=== PATIENT | male | born 1975 | race Caucasian/White ===

== ENCOUNTER → 2020-08-19 06:56 | Outpatient (CLI) | payer OTHER, SELFPAY ==
--- NOTE | 2020-08-19 | DI.MRI.S_ITS ---
PROCEDURE: MR SHOULDER LT WO CON INDICATIONS: Strain of muscle, fascia and tendon of other parts TECHNIQUE: Noncontrast oblique coronal T2 fast spin echo with fat saturation, oblique sagittal T1 spin echo and T2 fast spin echo with fat saturation, axial T1 spin echo and T2 fast spin echo with fat saturation through the shoulder. COMPARISON: None. FINDINGS: Image quality: Excellent. Rotator cuff: There is low-grade bursal surface tearing of the posterior supraspinatus/anterior infraspinatus tendon junction at the humeral insertion site extending to the musculotendinous junction. There is low-grade partial-thickness bursal surface tearing of the anterior and mid supraspinatus tendon at the humeral insertion site. Mild T2 signal elevation within the infraspinatus tendon diffusely at the humeral insertion site is present, indicating tendinopathy. Low-grade partial-thickness intrasubstance tearing of the mid and superior subscapularis tendon at the humeral insertion site, demonstrating musculotendinous junction extension. Sagittal images demonstrate no muscle atrophy. Bones and bursae: No bone marrow contusions or fractures. Moderate acromioclavicular joint degeneration. The acromion demonstrates conventional anatomy, without an os acromiale. No pathologic subacromial-subdeltoid or subcoracoid bursal fluid is present. Capsule and soft tissues: In the absence of intra-articular contrast, the labrum and glenohumeral ligaments appear intact. The long head of the biceps tendon demonstrates normal location and morphology. The rotator interval appears normal, without fibrosis. The coracohumeral ligament is normal in thickness. IMPRESSION: 1. Infraspinatus tendinopathy. 2. Low-grade partial-thickness tears of the subscapularis, supraspinatus, and infraspinatus tendons. No full-thickness rotator cuff tear. 3. Acromioclavicular joint osteoarthritis. Dictated by: Elie San M.D. on 08/19/2020 at 8:29 Approved by: Elie San M.D. on 08/19/2020 at 8:31
== END ==
PROVIDERS: Referring Provider Orthopaedic Surgery Orthopaedic Surgery of the Spine; Visit Provider Orthopaedic Surgery Orthopaedic Surgery of the Spine
DX: S46.212A Strain of muscle, fascia and tendon of other parts of biceps, left arm, initial encounter (principal); S46.012A Strain of muscle(s) and tendon(s) of the rotator cuff of left shoulder, initial encounter; M19.012 Primary osteoarthritis, left shoulder; X58.XXXA Exposure to other specified factors, initial encounter
CPT/HCPCS: 73221

== ENCOUNTER → 2020-08-31 11:12 | Outpatient (CLI) | payer OTHER, SELFPAY ==
[2020-08-31 13:03] LABS: COVID19 -Nasal RAPID Negative (Negative)
== END ==
PROVIDERS: Visit Provider Physician Assistant
DX: Z11.59 Encounter for screening for other viral diseases (principal)
CPT/HCPCS: 87635

== ENCOUNTER 2020-09-02 06:12 | Day surgery (SDC) | payer OTHER, SELFPAY ==
[2020-08-30 10:49] VITALS: BMI 31.1
[2020-09-02] VITALS (13 sets, daily range): BP systolic 111–136; BP diastolic 63–84; PULSE 16–94; RESP 12–91; TEMP 36.7–36.9; O2SAT 91–98; BMI 31.1
[2020-09-02] MEDS: LACTATED RINGERS 1,000 ML 42 ML IV ×2 (07:15→08:45)
--- NOTE | 2020-09-02 07:22 | SUR.OPER ---
Supine on padded OR bed, head on pillow, right arm secured on padded arm boards at <90 degrees abduction, left arm prepped into field and supported on hand table, legs uncrossed, safety belt at thigh, tape over blanket over lower legs.
--- NOTE | 2020-09-02 07:38 | PM.PREOP ---
Pre-operative Note COVID-19 COVID-19 status: Negative Result date/Date tested (Pos, Neg/Pending): 08/31/20 Interval Note History & Physical reviewed/Exam performed by Physician: Yes Changes to H&P: No
[2020-09-02] MEDS: CEFAZOLIN 2 GM/100 ML FROZ.PIGGY IV (07:40)
[2020-09-02] MEDS: BUPIVACAINE 0.5% W/ EPI (PF) 30 ML VIAL INJ (09:20)
[2020-09-02] MEDS: fentaNYL 100 MCG/2 ML INJ IV ×6 (09:30→10:05)
[2020-09-02] MEDS: HYDROMORPHONE 2 MG INJ IV ×2 (09:35→09:40)
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
[2020-09-02] MEDS: OXYCODONE/ACETAMINOPHEN 5/325 TABLET 1 TAB PO ×2 (09:48→10:20)
[2020-09-02] MEDS: hydrOXYzine pamoate 25 MG CAPSULE PO (09:57)
--- NOTE | 2020-09-02 10:38 | SUR.PHASEII ---
hand off report to Jany Alejandra RN
[2020-09-02] MEDS: OXYCODONE IR 5 MG TABLET PO (11:00)
== END 2020-09-02 11:44 | disposition home or self-care (01) ==
PROVIDERS: Referring Provider Orthopaedic Surgery; Visit Provider Orthopaedic Surgery
PROC: (CPT 24341; principal; 2020-09-02 07:45)
DX: S46.212A Strain of muscle, fascia and tendon of other parts of biceps, left arm, initial encounter (principal); X50.0XXA Overexertion from strenuous movement or load, initial encounter
CPT/HCPCS: 24341; J0690; J1100; J1170; J2405; J2704; J2765; J3010

== ENCOUNTER → 2020-12-28 17:07 | Outpatient (CLI) | payer OTHER, SELFPAY ==
[2020-12-28 18:34] LABS: Alanine Aminotransferase 17 IU/L (<50); Albumin 4.7 g/dL (3.5-5.0); Alkaline Phosphatase 74 U/L (38-126); Aspartate Aminotransferase 23 IU/L (17-59); BUN Creatinine Ratio 24.7 (6-22); Bilirubin Total 1.1 mg/dL (0.2-1.3); Blood Urea Nitrogen 20 mg/dL (9-20); Calcium 9.7 mg/dL (8.4-10.2); Carbon Dioxide 26 mmol/L (22-32); Chloride 104 mmol/L (98-107); Cholesterol 192 mg/dL (140-199); Estimated Glomerular Filt Rate > 60.0 mL/min (>60); Globulin 2.4 g/dL (1.7-4.1); Glucose 116 mg/dL (70-100); HDL Cholesterol 38 mg/dL (40-60); HEMOLYSIS < 15 (0-50); LDL Cholesterol Calculated 108 mg/dL (<100); Lipase 75 U/L (23-300); Potassium 4.1 mmol/L (3.4-5.1); Sodium 140 mmol/L (137-145); Total Protein 7.1 g/dL (6.3-8.2); Triglycerides 228 mg/dL (35-150)
[2020-12-28 18:35] LABS: C-Reactive Protein Quant < 0.5 mg/dL (<1.0)
[2020-12-28 18:38] LABS: Hematocrit 36.6 % (41-53); Mean Corpuscular HGB Conc 32.8 % (30-36); Mean Corpuscular Hemoglobin 30.4 PG (26-34); Mean Corpuscular Volume 92.5 fL (80-100); Platelet Count 284 X10^3/uL (150-400); Red Blood Cell Count 3.95 X10^6/uL (4.5-5.9); Red Cell Distribution Width 18.7 % (11.6-14.8); White Blood Cell Count 8.3 X10^3/uL (4.5-11.0)
[2020-12-28 19:00] LABS: Add Manual Diff / Slide Review YES
[2020-12-28 19:02] LABS: TSH w/ Reflex to FT4 2.66 uIU/mL (0.47-4.68)
[2020-12-28 19:07] LABS: Erythrocyte Sedimentation Rate 13 MM/HR (0-15)
[2020-12-28 19:34] LABS: Neutrophils Absolute Manual 5312 /uL (3000-5900); Total Cells Counted 100
[2020-12-28 19:35] LABS: Ovalocytes 1+; Platelet Estimate Adequate on smear; Tear Drop Cells 1+
[2020-12-29 22:07] LABS: Deamidated Gliadin Ab IgA 5 units (0-19); Deamidated Gliadin Ab IgG 3 units (0-19); Immunoglobulin A,Qn 85 mg/dL (90-386); t-Transglutaminase IgA <2 U/mL (0-3)
[2021-01-06 14:27] LABS: Fecal Immunochemical Test Positive (Negative)
== END ==
PROVIDERS: PCP Family Medicine; Referring Provider Family Medicine; Visit Provider Family Medicine
DX: Z00.01 Encounter for general adult medical examination with abnormal findings (principal); K58.0 Irritable bowel syndrome with diarrhea; R39.15 Urgency of urination; Z80.0 Family history of malignant neoplasm of digestive organs
CPT/HCPCS: 80053; 80061; 82274; 82784; 83036; 83516; 83690; 84443; 85007; 85025; 85651; 86140

== ENCOUNTER → 2021-01-05 10:23 | Outpatient (CLI) | payer OTHER, SELFPAY ==
[2021-01-05 10:28] LABS: Bacteria Urine None Seen; RBC Urine None Seen (0-5/HPF); WBC Urine None Seen (0-5/HPF)
[2021-01-05 10:38] LABS: Appearance Urine UA SL CLOUDY; Bilirubin Urine UA NEGATIVE (NEGATIVE); Color Urine UA YELLOW; Glucose Urine UA NEGATIVE (Negative); Ketones Urine UA NEGATIVE (NEGATIVE); Leukocyte Esterase Urine UA NEGATIVE (NEGATIVE); Nitrite Urine UA NEGATIVE (Negative); Occult Blood Urine UA NEGATIVE (Negative); Protein Urine UA NEGATIVE (Negative); Urobilinogen Urine UA 0.2 E.U./dL (0.2); pH Urine UA 7.5 (4.5-8.0)
[2021-01-05 10:45] LABS: Amorphous Sediment Urine 3+; Culture Indicated Urine Cult Not Indicated
== END ==
PROVIDERS: PCP Family Medicine; Referring Provider Family Medicine; Visit Provider Family Medicine
DX: R39.15 Urgency of urination (principal)
CPT/HCPCS: 81001

== ENCOUNTER 2021-01-05 10:58 | Emergency (ER) | payer OTHER, SELFPAY ==
[2021-01-05] VITALS (9 sets, daily range): BP systolic 113–125; BP diastolic 58–65; PULSE 61–67; RESP 16; TEMP 36.7; O2SAT 97–100; BMI 27.1
[2021-01-05 11:29] LABS: Hematocrit 36.2 % (41-53); Hemoglobin 12.1 g/dL (13.5-17.5); Mean Corpuscular HGB Conc 33.6 % (30-36); Mean Corpuscular Hemoglobin 30.8 PG (26-34); Mean Corpuscular Volume 91.6 fL (80-100); Platelet Count 291 X10^3/uL (150-400); Red Blood Cell Count 3.95 X10^6/uL (4.5-5.9); Red Cell Distribution Width 19.1 % (11.6-14.8); White Blood Cell Count 9.9 X10^3/uL (4.5-11.0)
[2021-01-05 11:30] LABS: Add Manual Diff / Slide Review YES
[2021-01-05 11:33] LABS: INR 1.2 (0.9-1.3); Prothrombin Time 13.5 SECONDS (10.1-12.7)
[2021-01-05 11:36] LABS: PTT Partial Thromboplastin Tim 34 SECONDS (26.4-36.2)
[2021-01-05 11:37] LABS: Alanine Aminotransferase 21 IU/L (<50); Albumin 4.6 g/dL (3.5-5.0); Albumin Globulin Ratio 1.7 (1.0-2.8); Alkaline Phosphatase 85 U/L (38-126); Aspartate Aminotransferase 30 IU/L (17-59); BUN Creatinine Ratio 17.7 (6-22); Bilirubin Total 1.1 mg/dL (0.2-1.3); Blood Urea Nitrogen 14 mg/dL (9-20); Calcium 9.5 mg/dL (8.4-10.2); Carbon Dioxide 25 mmol/L (22-32); Chloride 104 mmol/L (98-107); Estimated Glomerular Filt Rate > 60.0 mL/min (>60); Globulin 2.7 g/dL (1.7-4.1); Glucose 108 mg/dL (70-100); HEMOLYSIS 17 (0-50); Lipase 52 U/L (23-300); Potassium 4.4 mmol/L (3.4-5.1); Sodium 139 mmol/L (137-145); Total Protein 7.3 g/dL (6.3-8.2)
[2021-01-05 11:47] LABS: Neutrophils Absolute Manual 7524 /uL (3000-5900); Polychromasia 1+; Tear Drop Cells 1+; Total Cells Counted 100
[2021-01-05 12:05] LABS: Creatine Kinase 41 U/L (55-170)
[2021-01-05 12:16] LABS: Troponin I < 0.012 ng/mL (0.01-0.034)
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
--- NOTE | 2021-01-05 14:27 | PC.NURSE ---
Sample was brought to the lab by pt this AM
--- NOTE | 2021-01-05 14:42 | DI.CT.S_ITS ---
PROCEDURE: CT ABDOMEN PELVIS W CON INDICATIONS: abdominal pain, epigastric and upper quadrants TECHNIQUE: After the administration of intravenous contrast, 5 mm thick sections acquired from the diaphragm to the symphysis. 5 mm coronal and sagittal reformats were acquired. For radiation dose reduction, the following was used: automated exposure control, adjustment of mA and/or kV according to patient size. COMPARISON: None. FINDINGS: Image quality: Excellent. ABDOMEN: Lung bases: Lung bases are clear. Heart size is normal. Solid organs: Liver is normal in size. Focal fatty infiltration noted in the liver adjacent to the falciform ligament in the gallbladder fossa. Gallbladder is within normal limits. Biliary system is non dilated. Pancreas enhances normally. Spleen is enlarged measuring 18.6 centimeters in long axis. No adrenal nodules. Kidneys demonstrate normal size and enhancement, without hydronephrosis. Peritoneum and bowel: Bowel loops demonstrate normal wall thickness and caliber. Scattered colonic diverticuli noted. Inflammatory changes noted adjacent to a colonic diverticulum in the distal left transverse colon within the left upper quadrant of the abdomen. No peridiverticular abscess. No free air. Trace free fluid noted in the cul-de-sac of the pelvis. Appendix is normal. Nodes and vessels: No retroperitoneal or mesenteric adenopathy by size criteria. Aorta and inferior vena cava are normal in size. Miscellaneous: Small fat containing umbilical hernia. PELVIS: Genitourinary: Bladder wall thickness is normal. Miscellaneous: No inguinal hernias or adenopathy. Bones: No suspicious bony lesions. No vertebral body compression fractures. IMPRESSION: 1. Transverse colon diverticulitis. 2. Splenomegaly of uncertain etiology. Spleen measures 18.6 centimeters and long axis. 3. No abscess. 4. No free intraperitoneal air. Dictated by: Nella Franz MD, PhD on 01/05/2021 at 15:05 Approved by: Nella Franz MD, PhD on 01/05/2021 at 15:11
== END 2021-01-05 15:50 | disposition home or self-care (01) ==
PROVIDERS: Emergency Provider Emergency Medicine; PCP Family Medicine
DX: K57.32 Diverticulitis of large intestine without perforation or abscess without bleeding (principal); R39.15 Urgency of urination
CPT/HCPCS: 36415; 74177; 80053; 81001; 81003; 82550; 83690; 84484; 85007; 85025; 85610; 85730; 93005; 93010; 99284; Q9967

== ENCOUNTER → 2021-02-02 16:26 | Outpatient (CLI) | payer OTHER, SELFPAY ==
[2021-02-02 17:34] LABS: Add Manual Diff / Slide Review NO; Basophils Absolute Auto 0 /uL (0-100); Basophils Percent Auto 0.2 % (0-2); Eosinophils Absolute Auto 0 /uL (0-450); Eosinophils Percent Auto 0.5 % (2-4); Hematocrit 37.1 % (41-53); Hemoglobin 12.3 g/dL (13.5-17.5); Lymphocytes Absolute Auto 1700 /uL (1100-4500); Lymphocytes Percent Auto 20.2 % (25-40); Mean Corpuscular HGB Conc 33.1 % (30-36); Mean Corpuscular Hemoglobin 30.6 PG (26-34); Mean Corpuscular Volume 92.2 fL (80-100); Monocytes Absolute Auto 400 /uL (0-900); Monocytes Percent Auto 4.5 % (3-14); Neutrophils Absolute Auto 6100 /uL (1500-7000); Neutrophils Percent Auto 74.6 % (50-75); Platelet Count 321 X10^3/uL (150-400); Red Blood Cell Count 4.02 X10^6/uL (4.5-5.9); Red Cell Distribution Width 18.9 % (11.6-14.8); White Blood Cell Count 8.2 X10^3/uL (4.5-11.0)
[2021-02-02 17:43] LABS: HEMOLYSIS < 15 (0-50); Iron 97 ug/dL (49-181)
[2021-02-02 17:54] LABS: Percent Iron Saturation 35 % (20-50); Total Iron Binding Capacity 275 ug/dL (261-462); Transferrin 233 mg/dL (206-381)
[2021-02-02 18:19] LABS: Ferritin 40 ng/mL (18-464)
[2021-02-02 18:49] LABS: Folate 12.1 ng/mL (2.76-20.0); Vitamin B12 Reflex MMA if <400 379 pg/mL (239-931)
[2021-02-05 15:42] LABS: Methylmalonic Acid,Serum 102 nmol/L (0-378)
--- NOTE | 2021-02-07 09:35 | ONC.MSW ---
Description: New Referral Navigation Reason for Referral: Anemia, Splenomegaly Activity: Reviewed EMR. Referral being sent for acute anemia, acute splenomegaly, both colonoscopy and endoscopy have been ordered due to intermittent bleeding w/bowel movements. [employer] reviewed referral w/Dr. Finley. Forwarded to schedulers for 3-week f/u initial consult appointment.
== END ==
PROVIDERS: PCP Family Medicine; Referring Provider Family Medicine; Visit Provider Family Medicine
DX: D64.9 Anemia, unspecified (principal); K58.0 Irritable bowel syndrome with diarrhea; Z80.0 Family history of malignant neoplasm of digestive organs
CPT/HCPCS: 36415; 82607; 82728; 82746; 83540; 83550; 83921; 85025

== ENCOUNTER → 2021-02-20 14:56 | Outpatient (CLI) | payer OTHER, SELFPAY ==
[2021-02-20 16:57] LABS: COVID19 -Nasal RAPID Negative (Negative)
== END ==
PROVIDERS: PCP Family Medicine; Visit Provider Surgery
DX: Z01.812 Encounter for preprocedural laboratory examination (principal); Z20.822 Contact with and (suspected) exposure to COVID-19
CPT/HCPCS: 87635; C9803

== ENCOUNTER 2021-02-21 12:40 | Day surgery (SDC) | payer OTHER, SELFPAY ==
--- NOTE | 2021-02-21 | PATH_ITS ---
[facility] Accession Number: [id number] . 01 Material submitted: . PART A: duodenum - DUODENAL BIOPSY PART B: stomach - STOMACH BIOPSY PART C: esophagus, E-G Junction - GE JUNCTION POLYP PART D: esophagus - DISTAL ESOPHAGUS BIOPSY . 01 Clinical history: . B: R/O H PYLORI . 02 Diagnosis: A. Duodenum, Biopsy: Duodenal mucosa with foveolar metaplasia, consistent with peptic duodenitis. Negative for active inflammation, features of sprue, dysplasia or malignancy. . B. Stomach, Biopsy: Gastric antral and body mucosa with no diagnostic abnormality. No evidence of Helicobacter organisms on H/E stain. Negative for intestinal metaplasia. Negative for dysplasia and malignancy. . C. Gastroesophageal Junction, Polyp, Biopsy: Polypoid squamocolumnar junctional mucosa with focal erosion, consistent with severe reflux esophagitis. Negative for specialized intestinal metaplasia, dysplasia or malignancy. . D. Distal Esophagus, Biopsy: Squamous mucosa with no diagnostic abnormality. Intraepithelial eosinophils are not increased. No columnar mucosa present for evaluation. Negative for dysplasia or malgnancy. [facility] 02/24/2021 1130 Local . 02 Electronically signed: . Ward Hernández MD, PhD, Pathologist NPI- [id number] . 01 Gross description: . Part A: DUODENAL BIOPSY: Received in formalin are 2 fragment(s) of sev[place], soft tissue measuring 0.1 x 0.1 x 0.1 cm to 0.3 x 0.2 x 0.2 cm submitted entirely in 1 cassette(s) Part B: STOMACH BIOPSY: Received in formalin are multiple fragment(s) of sev[place], soft tissue measuring 0.1 x 0.1 x 0.1 cm to 0.3 x 0.2 x 0.2 cm submitted entirely in 1 cassette(s) Part C: GE JUNCTION POLYP: Received in formalin is 1 fragment(s) of sev[place], soft tissue measuring 0.5 x 0.4 x 0.4 cm submitted entirely in 1 cassette(s) Part D: DISTAL ESOPHAGUS BIOPSY: Received in formalin are 2 fragment(s) of sev[place], soft tissue measuring 0.1 x 0.1 x 0.1 cm to 0.2 x 0.1 x 0.1 cm submitted entirely in 1 cassette(s) /[facility]GLAS 02/22/2021 1852 Local . 02 Pathologist provided ICD-10: K29.80, K21.00, R13.10 . 02 CPT . 215526, [id number], [id number], [id number] Performed at: 01 [facility] [address] [id number] MD Yung Moody MD Phone: [phone] Performed at: 02 [facility] [address] [place], [place] [id number] MD Marilyn Shaffer MD Phone: [phone]
[2021-02-21 12:54] VITALS: BP 129/79; PULSE 81; RESP 20; TEMP 36.7; O2SAT 97; BMI 27.1
[2021-02-21] MEDS: SODIUM CHLORIDE 0.9% 1,000 ML 200 ML IV (12:58)
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
--- NOTE | 2021-02-21 13:51 | P.OP.ENDO_ITS ---
Operative Date/Time/Diagnoses Date of procedure: 02/21/21 Time of procedure: 13:51 Pre-op diagnosis: Diverticulitis, high risk family history for colon cancer, refractory heartburn Procedure & Clinicians Study performed: Esophagus gastroduodenoscopy Biopsies of duodenum, stomach, GE junction polyp, distal esophagus Colonoscopy Procedural sedation performed by the endoscopist Same procedure as scheduled: Yes Indications: Refractory heartburn, diverticulitis, high risk family history for colon cancer Surgeon: Terri Zarate Procedure Notes SCOAP/Timeout: Performed Procedure in detail: The patient was brought to the room and placed in left late ral decubitus position with all bony prominences padded. A bite block was positioned in the patient's mouth to protect the lips, teeth, and tongue for the procedure. A time-out was performed and then the patient was given procedural sedation starting with 4 mg of Versed and 100 mcg of fentanyl. Vitals were monitored throughout the procedure and remained stable. Once adequately sedated, the procedure was begun. The lubricated gastroscope was passed through the bite block and across the tongue and into the esophagus without incident. A tubular view of the esophagus was maintained as the scope was advanced through the esophagus and into the stomach. The scope was advanced through the stomach and to the pylorus. The scope was gently popped through the pylorus and into the duodenal bulb. The scope was flexed and advanced into the second and third portions of the duodenum. The duodenum and duodenal bulb appeared fairly normal. Biopsies were taken. The scope was withdrawn into the stomach. Evidence of mild this copy gastritis was seen. Biopsies were taken to rule out H pylori, and to evaluate the degree of gastritis. There was a small amount of retained food in the stomach. The scope was retroflexed and the gastric cardia was examined. The hiatus appeared normal, without significant gaping around the scope. The scope was then straightened, and withdrawn into the esophagus. There was an adenomatous appearing polyp at the GE junction, which was biopsy with hot snare. The Z-line appeared at the normal. The distal esophagus was biopsied. The scope was then withdrawn through the esophagus with a tubular view. The scope was then withdrawn from the patient. Attention was then turned to the colonoscopy portion of the procedure. A rectal exam was performed revealing no abnormalities. The colonoscope was then introduced to the rectum and advanced to the cecum in the usual fashion. The cecum was identified by the appendiceal orifice, the mucosal tri-fold, and the ileocecal valve. There is no difficulty advancing the scope. The scope was then retracted while rotating side to side and examining each mucosal fold. No polyps were seen. Moderate diverticulosis was seen throughout the colon most significant in the descending and sigmoid colon. No evidence of active diverticulitis was seen. At the conclusion of the procedure retroflexion was performed and moderate grade 2-3 internal hemorrhoids without stigmata of bleeding were seen. The scope was then withdrawn from the rectum the procedure was concluded. The patient tolerated the procedure well and was transferred to the PACU in stable condition. A total of 10 mg of Versed and 150 micro g of fentanyl were given for the entire procedure. Scope withdrawal time: 6 Sedation minutes: 30 Findings: diverticulosis, internal hemorrhoids and other findings (Gastroesophageal junction polyp) Specimen(s): other (Biopsy of duodenum, stomach, distal esophagus, GE junction polyp) Complications: none Post-procedure Recommendations: Colonscopy in 5 years (Due to high risk family history) and Other recommendation (Follow-up to discuss biopsy results, and internal hemorrhoids) Follow up: as needed Disposition: PACU
[2021-02-21] MEDS: MIDAZOLAM 5 MG/5 ML VIAL IV (13:54)
[2021-02-21] MEDS: fentaNYL 250 MCG/5 ML INJ IV (13:55)
[2021-02-21] MEDS: LIDOCAINE 4% SOLN 50 ML 20 ML TOP (13:56)
[2021-02-21 14:32] VITALS: BP 111/62; PULSE 74; RESP 14; TEMP 36.8; O2SAT 96
[2021-02-21 14:35] VITALS: BP 117/55; PULSE 74; RESP 14; O2SAT 95
[2021-02-21 14:40] VITALS: BP 105/63; PULSE 74; RESP 12; O2SAT 97
[2021-02-21 14:45] VITALS: BP 105/63; PULSE 74; RESP 12; TEMP 36.9; O2SAT 98
[2021-02-21 15:13] VITALS: BP 122/75; PULSE 80; RESP 16; TEMP 36.6; O2SAT 98
== END 2021-02-21 15:13 | disposition home or self-care (01) ==
PROVIDERS: PCP Family Medicine; Referring Provider Family Medicine; Visit Provider Surgery
PROC: 0DJD8ZZ Inspection of Lower Intestinal Tract, Via Natural or Artificial Opening Endoscopic (ICD-10-PCS; CPT 45378; 2021-02-21 13:45)
PROC: 0DJ08ZZ Inspection of Upper Intestinal Tract, Via Natural or Artificial Opening Endoscopic (ICD-10-PCS; CPT 43235; 2021-02-21 13:45)
DX: R19.4 Change in bowel habit (principal); R10.13 Epigastric pain; R16.1 Splenomegaly, not elsewhere classified; Z80.0 Family history of malignant neoplasm of digestive organs; K29.50 Unspecified chronic gastritis without bleeding; K64.1 Second degree hemorrhoids; K21.00 Gastro-esophageal reflux disease with esophagitis, without bleeding
CPT/HCPCS: 43239; 45378; 99152; 99153; J2250; J3010

== ENCOUNTER → 2021-03-03 14:49 | Outpatient (CLI) | payer OTHER, SELFPAY ==
[2021-03-03] MEDS: COVID-19 VACC, Ad26(JANSSEN)/PF 0.5 ML IM (14:55)
== END ==
PROVIDERS: PCP Family Medicine; Visit Provider Internal Medicine
DX: Z23 Encounter for immunization (principal)
CPT/HCPCS: 0031A; 91303

== ENCOUNTER → 2023-04-29 14:47 | Outpatient (CLI) | payer OTHER, SELFPAY ==
[2023-04-29 15:45] LABS: Add Manual Diff / Slide Review YES; Hematocrit 32.7 % (41-53); Mean Corpuscular HGB Conc 33.7 % (30-36); Mean Corpuscular Hemoglobin 32.7 PG (26-34); Mean Corpuscular Volume 96.9 fL (80-100); Platelet Count 180 X10^3/uL (150-400); Red Blood Cell Count 3.38 X10^6/uL (4.5-5.9); Red Cell Distribution Width 18.2 % (11.6-14.8); White Blood Cell Count 7.5 X10^3/uL (4.5-11.0)
[2023-04-29 16:05] LABS: Alanine Aminotransferase 31 IU/L (<50); Albumin 4.6 g/dL (3.5-5.0); Albumin Globulin Ratio 1.8 (1.0-2.8); Alkaline Phosphatase 83 U/L (38-126); Aspartate Aminotransferase 31 IU/L (17-59); Bilirubin Total 0.8 mg/dL (0.2-1.3); Blood Urea Nitrogen 20 mg/dL (9-20); Calcium 9.5 mg/dL (8.4-10.2); Carbon Dioxide 32 mmol/L (22-32); Chloride 103 mmol/L (98-107); Estimated Glomerular Filt Rate > 60 mL/min (>60); Globulin 2.6 g/dL (1.7-4.1); Glucose 101 mg/dL (70-100); HEMOLYSIS < 15 (0-50); Potassium 4.5 mmol/L (3.4-5.1); Sodium 141 mmol/L (137-145); Total Protein 7.2 g/dL (6.3-8.2)
[2023-04-29 16:23] LABS: Neutrophils Absolute Manual 4725 /uL (3000-5900); Total Cells Counted 100
[2023-04-29 16:30] LABS: Anisocytosis 1+
[2023-04-29 16:31] LABS: Tear Drop Cells 1+
== END ==
PROVIDERS: PCP Family Medicine; Referring Provider Internal Medicine Hematology & Oncology; Visit Provider Internal Medicine Hematology & Oncology
DX: D64.9 Anemia, unspecified (principal); D75.81 Myelofibrosis
CPT/HCPCS: 36415; 80053; 85007; 85025

== ENCOUNTER → 2023-09-03 14:45 | Outpatient (CLI) | payer OTHER, SELFPAY ==
[2023-09-03 15:30] LABS: Hematocrit 34.3 % (41-53); Hemoglobin 11.7 g/dL (13.5-17.5); Mean Corpuscular Hemoglobin 32.8 PG (26-34); Mean Corpuscular Volume 96.3 fL (80-100); Platelet Count 199 X10^3/uL (150-400); Red Blood Cell Count 3.56 X10^6/uL (4.5-5.9); White Blood Cell Count 9.8 X10^3/uL (4.5-11.0)
[2023-09-03 15:31] LABS: Add Manual Diff / Slide Review YES
[2023-09-03 16:03] LABS: Alanine Aminotransferase 48 IU/L (<50); Albumin 4.5 g/dL (3.5-5.0); Albumin Globulin Ratio 1.9 (1.0-2.8); Alkaline Phosphatase 82 U/L (38-126); Anisocytosis 1+; Aspartate Aminotransferase 37 IU/L (17-59); BUN Creatinine Ratio 25.8 (6-22); Bilirubin Total 0.7 mg/dL (0.2-1.3); Blood Urea Nitrogen 25 mg/dL (9-20); Calcium 9.6 mg/dL (8.4-10.2); Carbon Dioxide 27 mmol/L (22-32); Chloride 104 mmol/L (98-107); Estimated Glomerular Filt Rate > 60 mL/min (>60); Globulin 2.4 g/dL (1.7-4.1); Glucose 107 mg/dL (70-100); HEMOLYSIS < 15 (0-50); Neutrophils Absolute Manual 6370 /uL (3000-5900); Nucleated Red Blood Cells 3 #/Diff; Potassium 4.3 mmol/L (3.4-5.1); Sodium 138 mmol/L (137-145); Total Cells Counted 100; Total Protein 6.9 g/dL (6.3-8.2)
[2023-09-03 16:04] LABS: Cholesterol 227 mg/dL (140-199); HDL Cholesterol 40 mg/dL (40-60); LDL Cholesterol Calculated 123 mg/dL (<100); Microcytosis 1+; Schistocytes 1+; Triglycerides 318 mg/dL (35-150)
== END ==
PROVIDERS: PCP Family Medicine; Referring Provider Internal Medicine Hematology & Oncology; Visit Provider Internal Medicine Hematology & Oncology
DX: R12 Heartburn (principal); D75.81 Myelofibrosis
CPT/HCPCS: 36415; 80053; 80061; 85007; 85025

== ENCOUNTER → 2023-12-19 14:48 | Outpatient (CLI) | payer OTHER, SELFPAY ==
[2023-12-19 15:16] LABS: Add Manual Diff / Slide Review YES; Hematocrit 33.2 % (41-53); Hemoglobin 11.4 g/dL (13.5-17.5); Mean Corpuscular HGB Conc 34.4 % (30-36); Mean Corpuscular Hemoglobin 33.3 PG (26-34); Mean Corpuscular Volume 96.8 fL (80-100); Platelet Count 177 X10^3/uL (150-400); Red Blood Cell Count 3.43 X10^6/uL (4.5-5.9); Red Cell Distribution Width 17.7 % (11.6-14.8); White Blood Cell Count 9.6 X10^3/uL (4.5-11.0)
[2023-12-19 16:01] LABS: Neutrophils Absolute Manual 5568 /uL (3000-5900); Nucleated Red Blood Cells 3 #/Diff; Total Cells Counted 100
[2023-12-19 16:03] LABS: Anisocytosis 1+; Polychromasia 1+
[2023-12-19 16:27] LABS: Alanine Aminotransferase 28 IU/L (<50); Albumin 4.6 g/dL (3.5-5.0); Albumin Globulin Ratio 1.8 (1.0-2.8); Alkaline Phosphatase 79 U/L (38-126); Aspartate Aminotransferase 32 IU/L (17-59); BUN Creatinine Ratio 21.5 (6-22); Blood Urea Nitrogen 20 mg/dL (9-20); Calcium 9.4 mg/dL (8.4-10.2); Carbon Dioxide 28 mmol/L (22-32); Chloride 105 mmol/L (98-107); Estimated Glomerular Filt Rate > 60 mL/min (>60); Globulin 2.6 g/dL (1.7-4.1); Glucose 95 mg/dL (70-100); HEMOLYSIS < 15 (0-50); Potassium 4.9 mmol/L (3.4-5.1); Sodium 139 mmol/L (137-145); Total Protein 7.2 g/dL (6.3-8.2)
== END ==
PROVIDERS: PCP Family Medicine; Referring Provider Internal Medicine Hematology & Oncology; Visit Provider Internal Medicine Hematology & Oncology
DX: D64.9 Anemia, unspecified (principal); D75.81 Myelofibrosis
CPT/HCPCS: 36415; 80053; 85007; 85025

== ENCOUNTER → 2024-03-23 14:53 | Outpatient (CLI) | payer OTHER, SELFPAY ==
--- NOTE | 2024-03-23 14:54 | DI.RAD.S_ITS ---
PROCEDURE: XR CHEST 2V INDICATIONS: Dyspnea, cough TECHNIQUE: 2 views of the chest were acquired. COMPARISON: None. FINDINGS: Surgical changes and devices: None. Lungs and pleura: Lungs are clear. No pleural effusions or pneumothorax. Mediastinum: Mediastinal contours are normal. Heart size is normal. Bones and chest wall: No suspicious bony abnormalities. Soft tissues appear unremarkable. IMPRESSION: No acute cardiopulmonary abnormality is seen. Dictated by: Nicolas Bettencourt M.D. on 03/23/2024 at 16:15 Approved by: Nicolas Bettencourt M.D. on 03/23/2024 at 16:15
== END ==
PROVIDERS: PCP Family Medicine; Referring Provider Physician Assistant Surgical; Visit Provider Physician Assistant Surgical
DX: R06.00 Dyspnea, unspecified (principal); D75.81 Myelofibrosis; R05.9 Cough, unspecified
CPT/HCPCS: 71046

== ENCOUNTER → 2024-05-25 13:57 | Outpatient (CLI) | payer OTHER, SELFPAY ==
[2024-05-25 15:14] LABS: Alanine Aminotransferase 36 IU/L (<50); Albumin 4.6 g/dL (3.5-5.0); Albumin Globulin Ratio 1.9 (1.0-2.8); Alkaline Phosphatase 70 U/L (38-126); Aspartate Aminotransferase 39 IU/L (17-59); Bilirubin Total 0.7 mg/dL (0.2-1.3); Blood Urea Nitrogen 24 mg/dL (9-20); Calcium 9.3 mg/dL (8.4-10.2); Carbon Dioxide 24 mmol/L (22-32); Chloride 106 mmol/L (98-107); Globulin 2.4 g/dL (1.7-4.1); Glucose 95 mg/dL (70-100); HEMOLYSIS < 15 (0-50); Potassium 4.6 mmol/L (3.4-5.1); Sodium 138 mmol/L (137-145)
[2024-05-25 15:15] LABS: Hematocrit 36.3 % (41-53); Hemoglobin 11.9 g/dL (13.5-17.5); Mean Corpuscular HGB Conc 32.8 % (30-36); Mean Corpuscular Hemoglobin 32.2 PG (26-34); Mean Corpuscular Volume 98.2 fL (80-100); Platelet Count 242 X10^3/uL (150-400); Red Cell Distribution Width 17.6 % (11.6-14.8); White Blood Cell Count 10.2 X10^3/uL (4.5-11.0)
[2024-05-25 15:16] LABS: Add Manual Diff / Slide Review YES
[2024-05-25 15:27] LABS: BUN Creatinine Ratio 16.2 (6-22); Estimated Glomerular Filt Rate 58 mL/min (>60)
[2024-05-25 15:46] LABS: Neutrophils Absolute Manual 6426 /uL (3000-5900); Nucleated Red Blood Cells 3 #/Diff; Total Cells Counted 100
[2024-05-25 15:47] LABS: Anisocytosis 1+; Tear Drop Cells 1+
[2024-05-25 15:48] LABS: Polychromasia 1+
== END ==
PROVIDERS: PCP Family Medicine; Referring Provider Physician Assistant; Visit Provider Physician Assistant
DX: R16.1 Splenomegaly, not elsewhere classified (principal); D75.81 Myelofibrosis
CPT/HCPCS: 36415; 80053; 85007; 85025

== ENCOUNTER → 2024-06-01 15:48 | Outpatient (CLI) | payer OTHER, SELFPAY | PROVIDERS: PCP Family Medicine; Visit Provider Physician Assistant | DX: R30.0 Dysuria (principal) | CPT/HCPCS: 87077; 87086 ==

== ENCOUNTER → 2024-06-26 11:37 | Outpatient (CLI) | payer OTHER, SELFPAY | PROVIDERS: PCP Family Medicine; Visit Provider Student in an Organized Health Care Education/Training Program | DX: R30.0 Dysuria (principal) | CPT/HCPCS: 87077; 87086; 87186 ==

== ENCOUNTER 2024-08-01 13:34 | Emergency (ER) | payer OTHER, MEDICAID, SELFPAY ==
[2024-08-01 13:51] VITALS: BP 123/75; PULSE 71; RESP 16; TEMP 37.1; O2SAT 98; BMI 37.8
--- NOTE | 2024-08-01 13:56 | DI.RAD.S_ITS ---
PROCEDURE: XR KNEE LT 3V INDICATIONS: L knee pain, h/o bursitis. pain hiking TECHNIQUE: 3 views of the knee were acquired. COMPARISON: None. FINDINGS: Bones: No fractures or dislocations. No suspicious bony lesions. Soft tissues: No joint effusion. No suspicious soft tissue calcifications. IMPRESSION: No acute bony abnormality or significant effusion. Approved by: Jesse Mcguire M.D. on 08/01/2024 at 14:20
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
== END 2024-08-01 15:12 | disposition home or self-care (01) ==
PROVIDERS: Emergency Provider Physician Assistant; PCP Family Medicine
DX: S83.412A Sprain of medial collateral ligament of left knee, initial encounter (principal); X58.XXXA Exposure to other specified factors, initial encounter; Y93.02 Activity, running; Y92.89 Other specified places as the place of occurrence of the external cause
CPT/HCPCS: 73562; 99281; 99283

== ENCOUNTER → 2024-08-24 16:53 | Outpatient (CLI) | payer BC, OTHER, SELFPAY ==
--- NOTE | 2024-08-24 16:56 | DI.RAD.S_ITS ---
PROCEDURE: XR SHOULDER LT MIN 2V INDICATIONS: left shoulder pain TECHNIQUE: 3 views of the shoulder were acquired. COMPARISON: None. FINDINGS: Bones: No fractures or dislocations. No suspicious bony lesions. Visualized ribs appear intact. Mild early degenerative narrowing at the acromioclavicular joint space. Soft tissues: No suspicious soft tissue calcifications. IMPRESSION: No visualized acute fracture or dislocation. However, if clinical concern and/or pain persist, short interval imaging followup in 7-10 days is recommended, as occult injury cannot be definitively excluded. Dictated by: Maria Esther Blount M.D. on 08/25/2024 at 19:18 Approved by: Maria Esther Blount M.D. on 08/25/2024 at 19:18
[2024-08-24 17:45] LABS: Hematocrit 36.5 % (41-53); Hemoglobin 12.2 g/dL (13.5-17.5); Mean Corpuscular HGB Conc 33.5 % (30-36); Mean Corpuscular Hemoglobin 31.7 PG (26-34); Mean Corpuscular Volume 94.7 fL (80-100); Platelet Count 156 X10^3/uL (150-400); Red Blood Cell Count 3.85 X10^6/uL (4.5-5.9); Red Cell Distribution Width 17.8 % (11.6-14.8); White Blood Cell Count 7.6 X10^3/uL (4.5-11.0)
[2024-08-24 18:03] LABS: Add Manual Diff / Slide Review YES
[2024-08-24 18:08] LABS: Alanine Aminotransferase 21 IU/L (<50); Albumin 4.7 g/dL (3.5-5.0); Albumin Globulin Ratio 1.8 (1.0-2.8); Alkaline Phosphatase 62 U/L (38-126); Aspartate Aminotransferase 29 IU/L (17-59); BUN Creatinine Ratio 22.3 (6-22); Bilirubin Total 0.6 mg/dL (0.2-1.3); Blood Urea Nitrogen 25 mg/dL (9-20); Calcium 9.6 mg/dL (8.4-10.2); Carbon Dioxide 30 mmol/L (22-32); Chloride 105 mmol/L (98-107); Cholesterol 226 mg/dL (140-199); Estimated Glomerular Filt Rate > 60 mL/min (>60); Globulin 2.6 g/dL (1.7-4.1); Glucose 105 mg/dL (70-100); HDL Cholesterol 38 mg/dL (40-60); HEMOLYSIS < 15 (0-50); LDL Cholesterol Calculated 148 mg/dL (<100); Potassium 4.5 mmol/L (3.4-5.1); Sodium 139 mmol/L (137-145); Total Protein 7.3 g/dL (6.3-8.2); Triglycerides 199 mg/dL (35-150)
[2024-08-24 18:37] LABS: Anisocytosis 1+; Platelet Estimate Adequate on smear; Poikilocytosis 1+; Polychromasia 2+
[2024-08-24 18:38] LABS: Prostate Specific Antigen Scrn 0.864 ng/mL (0.1-4.0)
[2024-08-24 18:58] LABS: Neutrophils Absolute Manual 4256 /uL (3000-5900); Total Cells Counted 100
[2024-08-26 04:36] LABS: Apolipoprotein B 124 mg/dL (<90)
== END ==
PROVIDERS: PCP Family Medicine; Referring Provider Family Medicine; Visit Provider Family Medicine
DX: Z98.890 Other specified postprocedural states (principal); R16.1 Splenomegaly, not elsewhere classified; D75.81 Myelofibrosis; D64.9 Anemia, unspecified; Z12.5 Encounter for screening for malignant neoplasm of prostate; M25.512 Pain in left shoulder; S86.912D Strain of unspecified muscle(s) and tendon(s) at lower leg level, left leg, subsequent encounter
CPT/HCPCS: 36415; 73030; 80053; 80061; 82172; 85007; 85025; G0103

== ENCOUNTER → 2024-08-26 18:26 | Outpatient (CLI) | payer BC, SELFPAY ==
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
== END ==
LOC: MRI 18:26
PROVIDERS: PCP Family Medicine; Referring Provider Family Medicine; Visit Provider Family Medicine
DX: S83.242A Other tear of medial meniscus, current injury, left knee, initial encounter (principal); S83.412A Sprain of medial collateral ligament of left knee, initial encounter; S76.112A Strain of left quadriceps muscle, fascia and tendon, initial encounter; M22.42 Chondromalacia patellae, left knee; M25.462 Effusion, left knee; X58.XXXA Exposure to other specified factors, initial encounter
CPT/HCPCS: 73721

== ENCOUNTER → 2025-03-15 10:38 | Outpatient (CLI) | payer BC, SELFPAY ==
--- NOTE | 2025-03-15 10:41 | DI.RAD.S_ITS ---
PROCEDURE: XR KNEE LT 3V INDICATIONS: L knee Pain TECHNIQUE: 3 views of the knee were acquired. COMPARISON: [facility], , XR KNEE LT 3V, 08/01/2024, 14:14. FINDINGS: Bones: No fractures or dislocations. No patellar subluxation. Mild medial femoral tibial compartment joint space narrowing and subchondral sclerosis. No suspicious bony lesions. Soft tissues: Small joint effusion. No suspicious soft tissue calcifications. IMPRESSION: No acute left knee fracture or dislocation. Mild medial femoral tibial compartment osteoarthritis. Small joint effusion. Dictated by: Tony Hernandez M.D. on 03/15/2025 at 11:07 Approved by: Tony Hernandez M.D. on 03/15/2025 at 11:08
== END ==
LOC: DI 10:40
PROVIDERS: PCP Family Medicine; Referring Provider Family Medicine; Visit Provider Family Medicine
DX: M25.562 Pain in left knee (principal); M17.12 Unilateral primary osteoarthritis, left knee; M25.462 Effusion, left knee
CPT/HCPCS: 73562

== ENCOUNTER → 2025-03-18 19:02 | Outpatient (CLI) | payer BC, SELFPAY ==
--- NOTE | 2025-03-18 19:03 | DI.MRI.S_ITS ---
PROCEDURE: MR KNEE LT WO CON INDICATIONS: eval meniscus tendon TECHNIQUE: Noncontrast sagittal PD fast spin echo and T2 fast spin echo with fat saturation, sagittal 3-D FLASH with fat saturation; coronal T1 spin echo and PD fast spin echo with fat saturation, and axial PD fast spin echo with fat saturation through the knee. COMPARISON: [facility], MR, MR KNEE LT WO CON, 08/26/2024, 18:27. FINDINGS: Image quality: Excellent. Menisci: Again noted is radial tear involving body and posterior horn of medial meniscus extending to both superior and inferior articulating surfaces. The lateral meniscus is intact. Cruciate ligaments: The anterior cruciate ligament appears thickened particularly near its proximal insertion with intrasubstance T2 hyperintense signal. The posterior cruciate ligament is intact. Medial structures: The medial collateral ligament appears mildly thickened with surrounding soft tissue edema near its femoral insertion. Visualized portions of the pes anserinus tendons appear normal. No abnormal bursal fluid. Lateral structures: The lateral collateral ligament, long and short heads of the biceps femoris tendon appear intact. The popliteus tendon appears intact. Iliotibial band appears normal. Anterior structures: Distal quadriceps tendinosis and proximal patellar tendinosis is seen. Patellar alignment is normal. Bones and cartilage: No bone marrow contusions or fractures. Low-grade chondromalacia in medial femoral tibial compartment is seen. 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 Joint space: There is small knee joint fluid. No Ying's cyst. Normal appearing synovial plicae are incidentally noted. IMPRESSION: 1. Radial tear involving body and posterior horn of medial meniscus extending to both superior and inferior articulating surfaces unchanged from prior study. The lateral meniscus is intact. 2. Interval development of sprain/low-grade intrasubstance partial-thickness tear involving ACL. No ACL rupture. The PCL is intact. 3. Distal quadriceps tendinosis and proximal patellar tendinosis. 4. Low-grade proximal MCL sprain. 5. Moderate grade chondromalacia patella not significantly changed from previous study. Low-grade chondromalacia in medial femoral tibial compartment. No fracture or dislocation. Small joint effusion, no loose bodies. Dictated by: Tony Hernandez M.D. on 03/19/2025 at 9:55 Approved by: Tony Hernandez M.D. on 03/19/2025 at 17:11
== END ==
LOC: MRI 19:03
PROVIDERS: PCP Family Medicine; Referring Provider Family Medicine; Visit Provider Family Medicine
DX: S83.242A Other tear of medial meniscus, current injury, left knee, initial encounter (principal); S83.512A Sprain of anterior cruciate ligament of left knee, initial encounter; S83.412A Sprain of medial collateral ligament of left knee, initial encounter; M22.42 Chondromalacia patellae, left knee; M25.462 Effusion, left knee; X58.XXXA Exposure to other specified factors, initial encounter; Z87.828 Personal history of other (healed) physical injury and trauma
CPT/HCPCS: 73721

== ENCOUNTER → 2025-05-02 11:16 | Outpatient (CLI) | payer BC, SELFPAY | PROVIDERS: PCP Family Medicine; Visit Provider Chiropractor | DX: R30.0 Dysuria (principal) | CPT/HCPCS: 87077; 87086; 87186 ==

== ENCOUNTER → 2025-06-24 14:50 | Outpatient (CLI) | payer BC, SELFPAY ==
[2025-06-24 15:47] LABS: Hematocrit 35.5 % (41-53); Hemoglobin 11.7 g/dL (13.5-17.5); Mean Corpuscular HGB Conc 33.0 % (30-36); Mean Corpuscular Hemoglobin 32.0 PG (26-34); Mean Corpuscular Volume 96.8 fL (80-100); Platelet Count 197 X10^3/uL (150-400)
[2025-06-24 15:58] LABS: Add Manual Diff / Slide Review YES
[2025-06-24 16:05] LABS: Alanine Aminotransferase 41 IU/L (<50); Albumin 4.7 g/dL (3.5-5.0); Albumin Globulin Ratio 2.0 (1.0-2.8); Alkaline Phosphatase 75 U/L (38-126); Blood Urea Nitrogen 23 mg/dL (9-20); Calcium 9.3 mg/dL (8.4-10.2); Carbon Dioxide 31 mmol/L (22-32); Chloride 102 mmol/L (98-107); Estimated Glomerular Filt Rate > 60 mL/min (>60); Globulin 2.4 g/dL (1.7-4.1); Glucose 105 mg/dL (70-99); HEMOLYSIS < 15 (0-50); Potassium 4.1 mmol/L (3.4-5.1); Sodium 137 mmol/L (137-145); Total Protein 7.1 g/dL (6.3-8.2)
[2025-06-24 18:36] LABS: Atypical Lymphocytes Percent 1.0 %; Band Neutrophils Percent 12.0 % (3-7); Eosinophils Percent Manual 1.0 % (2-4); Lymphocytes Percent Manual 21.0 % (25-45); Metamyelocytes Percent 6.0 % (-0); Monocytes Percent Manual 6.0 % (2-11); Myelocytes Percent 3.0 % (-0); Neutrophils Absolute Manual 4836 /uL (3000-5900); Segmented Neutrophils Percent 50.0 % (38-70); Total Cells Counted 100
[2025-06-24 18:37] LABS: Polychromasia 1+
[2025-06-24 18:46] LABS: Anisocytosis 3+; Macrocytosis 1+; Microcytosis 1+
[2025-06-24 18:47] LABS: Hypochromasia 2+; Tear Drop Cells 1+
== END ==
PROVIDERS: PCP Family Medicine; Referring Provider Physician Assistant; Visit Provider Physician Assistant
DX: D64.9 Anemia, unspecified (principal); D75.81 Myelofibrosis
CPT/HCPCS: 36415; 80053; 83615; 85007; 85025

== ENCOUNTER → 2025-07-14 | Outpatient (CLI) | payer BC, SELFPAY ==
--- NOTE | 2025-07-14 15:22 | DI.RAD.S_ITS ---
PROCEDURE: XR ELBOW RT MIN 3V INDICATIONS: lateral pain x6 months TECHNIQUE: 3 views of the elbow were acquired. COMPARISON: None. FINDINGS: Bones: No fractures or dislocations. No suspicious bony lesions. Soft tissues: No elbow joint effusion. No suspicious soft tissue calcifications. IMPRESSION: No acute bony abnormality or significant joint effusion. Dictated by: Ankita Aguilar M.D. on 07/14/2025 at 16:59 Approved by: Ankita Aguilar M.D. on 07/14/2025 at 17:00
== END ==
PROVIDERS: PCP Family Medicine; Referring Provider Physician Assistant; Visit Provider Physician Assistant
DX: M77.11 Lateral epicondylitis, right elbow (principal)
CPT/HCPCS: 73080

== ENCOUNTER → 2025-08-19 14:29 | Outpatient (CLI) | payer BC, SELFPAY ==
[2025-08-19 15:17] LABS: Hematocrit 36.1 % (41-53); Hemoglobin 12.2 g/dL (13.5-17.5); Mean Corpuscular HGB Conc 33.9 % (30-36); Mean Corpuscular Hemoglobin 31.9 PG (26-34); Mean Corpuscular Volume 94.3 fL (80-100); Platelet Count 170 X10^3/uL (150-400)
[2025-08-19 15:21] LABS: Add Manual Diff / Slide Review YES
[2025-08-19 15:31] LABS: Alanine Aminotransferase 23 IU/L (<50); Albumin 4.9 g/dL (3.5-5.0); Albumin Globulin Ratio 2.0 (1.0-2.8); Alkaline Phosphatase 74 U/L (38-126); Blood Urea Nitrogen 22 mg/dL (9-20); Calcium 9.6 mg/dL (8.4-10.2); Carbon Dioxide 27 mmol/L (22-32); Chloride 102 mmol/L (98-107); Estimated Glomerular Filt Rate > 60 mL/min (>60); Globulin 2.4 g/dL (1.7-4.1); Glucose 110 mg/dL (70-99); HEMOLYSIS < 15 (0-50); Potassium 4.2 mmol/L (3.4-5.1); Sodium 138 mmol/L (137-145); Total Protein 7.3 g/dL (6.3-8.2)
[2025-08-19 15:53] LABS: Band Neutrophils Percent 8.0 % (3-7); Eosinophils Percent Manual 1.0 % (2-4); Lymphocytes Percent Manual 11.0 % (25-45); Metamyelocytes Percent 3.0 % (-0); Monocytes Percent Manual 3.0 % (2-11); Myelocytes Percent 18.0 % (-0); Neutrophils Absolute Manual 5184 /uL (3000-5900); Segmented Neutrophils Percent 56.0 % (38-70); Total Cells Counted 100
[2025-08-19 15:54] LABS: Anisocytosis 1+; Hypochromasia 1+
[2025-08-19 15:55] LABS: Tear Drop Cells 1+
== END ==
PROVIDERS: PCP Family Medicine; Referring Provider Nurse Practitioner Adult Health; Visit Provider Nurse Practitioner Adult Health
DX: D64.9 Anemia, unspecified (principal); D75.81 Myelofibrosis
CPT/HCPCS: 36415; 80053; 83615; 85007; 85025